=== PATIENT | male | born 1935 | race Caucasian/White ===

== ENCOUNTER → 2022-12-18 10:51 | Outpatient (BNVA) | payer MEDICARE, SELFPAY | PROVIDERS: Family Provider Family Medicine; PCP Family Medicine; Referring Provider Family Medicine; Visit Provider Dermatology | DX: L57.8 Other skin changes due to chronic exposure to nonionizing radiation (principal); L82.1 Other seborrheic keratosis; D48.5 Neoplasm of uncertain behavior of skin; L30.9 Dermatitis, unspecified | CPT/HCPCS: 11103; 11104; 11105; 99203 ==

== ENCOUNTER → 2022-12-29 09:55 | Outpatient (BNVA) | payer MEDICARE, SELFPAY | PROVIDERS: Family Provider Family Medicine; PCP Family Medicine; Visit Provider Dermatology | DX: L27.0 Generalized skin eruption due to drugs and medicaments taken internally (principal); C44.722 Squamous cell carcinoma of skin of right lower limb, including hip; Z48.02 Encounter for removal of sutures | CPT/HCPCS: 99213 ==

== ENCOUNTER → 2023-01-14 10:12 | Outpatient (BNVA) | payer MEDICARE, SELFPAY | PROVIDERS: Family Provider Family Medicine; PCP Family Medicine; Visit Provider Dermatology | DX: C44.722 Squamous cell carcinoma of skin of right lower limb, including hip (principal) | CPT/HCPCS: 17262 ==

== ENCOUNTER → 2023-08-20 14:41 | Outpatient (BNVA) | payer MEDICARE, SELFPAY | PROVIDERS: Family Provider Family Medicine; PCP Family Medicine; Visit Provider Family Medicine | DX: Z13.6 Encounter for screening for cardiovascular disorders (principal); I48.91 Unspecified atrial fibrillation; Z00.00 Encounter for general adult medical examination without abnormal findings; R06.2 Wheezing; L98.9 Disorder of the skin and subcutaneous tissue, unspecified | CPT/HCPCS: 80053; 80061 ==

== ENCOUNTER 2024-05-01 01:14 | Emergency (ER) | payer MEDICARE, SELFPAY ==
--- NOTE | 2024-05-01 01:19 | ECG_ITS ---
[facility] [employer] Test Date: 2024-05-01 Pat Name: Carroll Vizcaino Department: Room: Gender: Male Jewel Hole Cornerer: : 1935 Requested By: Joe Celaya Order Number: [id number] Luke MD: Jomar Ward M.D. Measurements Intervals [place] Rate: 59 P: 0 MT: 0 QRS: -61 QRSD: 114 T: 70 QT: 404 QTc: 403 Interpretive Statements ATRIAL FIBRILLATION WITH SLOW VENTRICULAR RESPONSE POSSIBLE ANTERIOR MYOCARDIAL INFARCTION , PROBABLY OLD [30 ms Q WAVE IN V3/V4, OR R < 0.2 mV IN V4] INFERIOR MYOCARDIAL INFARCTION , PROBABLY OLD [40+ ms Q WAVE AND/OR ST/T ABNORMALITY IN II/aVF] No previous ECG available for comparison Electronically Signed On 05-02-2024 20:16:24 FLIGHT TEST SUPERVISOR by Jomar Ward M.D. [email or web address]
[2024-05-01 01:24] VITALS: BP 157/79; PULSE 54; RESP 20; TEMP 36.6; O2SAT 92; BMI 34.4
--- NOTE | 2024-05-01 01:38 | XRR_ITS ---
PROCEDURE INFORMATION: Exam: XR Chest Exam date and time: 05/01/2024 1:41 AM Age: 88 years old Clinical indication: Patient HX: C/O palpitations. History of afib. ; Additional info: Palpitation TECHNIQUE: Imaging protocol: Radiologic exam of the chest. Views: 1 view. COMPARISON: CT abdomen pelvis wo/w [id number] 02/10/2018 1:28 AM FINDINGS: Lungs: There are prominent perihilar bronchi suggesting central bronchiectasis. There are increased interstitial opacities and some strandy opacity seen in the lower matt thoraces bilaterally, findings likely represents atelectasis. Pleural spaces: There may be tiny bilateral pleural effusions as well. Heart/Mediastinum: Unremarkable. No cardiomegaly. Bones/joints: Unremarkable. XR/XR chest 1V portable [id number] IMPRESSION: 1. Bilateral bronchiectasis 2. Increased interstitial opacities and strandy opacities in the lower hemithoraces most probably represents atelectasis. 3. Probable tiny bilateral pleural effusions
[2024-05-01 01:53] LABS: Basophils % 0.5 %; Eosinophils # 0.2 10^3/uL (0.0-0.8); Hematocrit 40.3 % (37-53); Lymphocytes # 1.8 10^3/uL (0.8-4.8); Lymphocytes % 24.5 %; Mean Corpuscular Hemoglobin 32.4 pg (27-33); Mean Corpuscular Volume 98.1 fl (82-101); Mean Platelet Volume 9.4 fL (7.4-10.4); Monocytes # 0.9 10^3/uL (0.2-0.9); Monocytes % 11.6 %; Neutrophils # 4.47 10^3/uL (1.8-7.7); Neutrophils % 60.1 %; Nucleated Red Blood Cells % 0 %; Platelet Count 220 10^3/cmm (157-399); Red Blood Count 4.11 10^6/uL (3.85-5.65); Red Cell Distribution Width 12.9 % (12.1-15.1); White Blood Count 7.43 10^3/uL (3.29-11.43)
[2024-05-01 02:04] LABS: INR 1.45 (0.8-1.2)
[2024-05-01 02:05] LABS: Partial Thromboplastin Time 33.3 SECONDS (23.9-36.7)
--- NOTE | 2024-05-01 02:05 | ED_ITS ---
HPI - Arrhythmia/Palpitations 2 General: Chief Complaint: Arrhythmia/Palpitations Stated Complaint: Afib heart racing Time Seen by Provider: 05/01/24 01:37 History of Present Illness: 88-year-old male patient with a history of atrial fibrillation. He awoke around 1230 this morning from sleep with palpitations. He felt like his heart was pounding through his chest he says. It is resolved now. He has been short of breath he says though for at least 5 days or so. No significant cough. He has swelling in his legs, but the swelling is stable from prior, no increase in water weight he says. He did not really have chest pain or discomfort. He did not take any extra medication at home. Related Data Previous Rx's Medication Instructions Recorded tamsulosin 0.4 mg capsule 0.4 mg PO DAILY #90 caps 07/01/22 albuterol sulfate 90 mcg/actuation 2 puff inhalation Q6H PRN 08/20/23 aerosol inhaler shortness of breath or wheezing/sputum production #8.5 grams metoprolol succinate 50 mg 50 mg PO DAILY #1 tab 08/20/23 tablet,extended release 24 hr triamcinolone acetonide 0.1 % 1 applic topical BID dermatosis 08/20/23 topical ointment #80 grams warfarin 2 mg tablet 2 mg PO DAILY #1 tab 08/20/23 Allergies Allergy/AdvReac Type Severity Reaction Status Date / Time No Known Allergies Allergy Unverified 11/10/23 09:02 [facility] ED 2 PFSH: Social History Smoking and tobacco/nicotine status: never used tobacco/nicotine Physical Exam 2 Const: COMMON NORMALS: no acute distress GENERAL APPEARANCE: cooperative; not ill appearing and not frail appearing HENMT: COMMON NORMALS: normocephalic, atraumatic and Normal external nose present HEAD & SCALP: normocephalic and atraumatic FACE & SINUS: normal facial exam and face symmetric NOSE: Normal external nose present Eye: COMMON NORMALS: Equal, round and reactive pupils present and EOMs intact bilaterally PUPIL: Yes Equal, round and reactive pupils present Neck/C-Spine: GENERAL: Yes trachea midline Chest: CHEST: Yes Symmetrical chest wall rise Resp: COMMON NORMALS: normal respiratory effort, No retractions, No use of accessory muscles and clear to auscultation bilaterally AUSCULTATION: clear to auscultation bilaterally Cardio: RATE: bradycardic RHYTHM: abnormal rhythm irregularly irregular GI: COMMON NORMALS: Normal to inspection, nondistended, normoactive bowel sounds present Extremity: GENERAL: Yes edema Neuro: DAVID COMA SCALE: document GCS findings David coma scale eye opening: Spontaneous Dodson coma scale verbal response: Orientated David coma scale motor response: Obey commands David coma scale total score: 15 S ENSORY EXAM: Yes extremities (intact) Psych: COMMON NORMALS: speech normal SPEECH: Yes normal speech Skin: COMMON NORMALS: no rashes or lesions noted GENERAL SKIN EXAM: no rashes or lesions noted Course 2 Vital Signs: Vital signs: Vital Signs Temperature 98 F 05/01/24 01:24 Pulse Rate 54 L 05/01/24 01:24 Respiratory Rate 20 H 05/01/24 01:24 Blood Pressure 157/79 05/01/24 01:24 Pulse Oximetry 92 05/01/24 01:24 MDM - Arrhythmia/Palpitations Medical Decision Making 88-year-old male gentleman who awoke with palpitations. His heart rate is actually been quite slow here. Anywhere from 35-60. Atrial fibrillation. He is normotensive. His other vitals are good. His delta troponin at 2 hours is 1. He has some bronchiectasis and is chest x-ray. He is given a dose of Lasix here to begin to diurese, as his x-ray shows tiny bilateral pleural effusions, and his BNP is slightly elevated. Cardiology follow-up. PCP follow-up. Return for worsening symptoms. Lab Data 05/01/24 01:25 05/01/24 01:25 Radiology Impressions Chest X-Ray 05/01/24 01:38 IMPRESSION: 1. Bilateral bronchiectasis 2. Increased interstitial opacities and strandy opacities in the lower hemithoraces most probably represents atelectasis. 3. Probable tiny bilateral pleural effusions Laboratory Results WBC 7.43 10^3/uL (3.29-11.43) 05/01/24 01:25 RBC 4.11 10^6/uL (3.85-5.65) 05/01/24 01:25 Hgb 13.30 g/dL (11.27-16.99) 05/01/24 01:25 Hct 40.3 % (37-53) 05/01/24 01:25 MCV 98.1 fl (82-101) 05/01/24 01:25 MCH 32.4 pg (27-33) 05/01/24 01:25 MCHC 33.0 g/dL (30-55) 05/01/24 01:25 RDW 12.9 % (12.1-15.1) 05/01/24 01:25 Plt Count 220 10^3/cmm (157-399) 05/01/24 01:25 MPV 9.4 fL (7.4-10.4) 05/01/24 01:25 Neut % (Auto) 60.1 % 05/01/24 01:25 Lymph % (Auto) 24.5 % 05/01/24 01:25 Winkler % (Auto) 11.6 % 05/01/24 01:25 Eos % (Auto) 3.0 % 05/01/24 01:25 Baso % (Auto) 0.5 % 05/01/24 01:25 Neut # (Auto) 4.47 10^3/uL (1.8-7.7) 05/01/24 01:25 Lymph # (Auto) 1.8 10^3/uL (0.8-4.8) 05/01/24 01:25 Winkler # (Auto) 0.9 10^3/uL (0.2-0.9) 05/01/24 01:25 Eos # (Auto) 0.2 10^3/uL (0.0-0.8) 05/01/24 01:25 Baso # (Auto) 0.0 10^3/uL (0.0-0.1) 05/01/24 01:25 Nucleated RBC % (auto) 0 % 05/01/24 01:25 Nucleated RBCs # 0.0 /100WBC 05/01/24 01:25 PT 18.10 SECONDS (12.1-14.9) H 05/01/24 01:25 INR 1.45 (0.8-1.2) H 05/01/24 01:25 APTT 33.3 SECONDS (23.9-36.7) 05/01/24 01:25 Sodium 138 mmol/L (136-145) 05/01/24 01:25 Potassium 4.2 mmol/L (3.5-5.1) 05/01/24 01:25 Chloride 102 mmol/L (98-107) 05/01/24 01:25 Carbon Dioxide 25 mmol/L (22-29) 05/01/24 01:25 Anion Gap 15.2 (5-19) 05/01/24 01:25 BUN 13 mg/dL (8-23) 05/01/24 01:25 Creatinine 0.8 mg/dL (0.7-1.2) 05/01/24 01:25 GFR Calculation Not Reportable 05/01/24 01:25 Glucose 116 mg/dL (65-115) H 05/01/24 01:25 Calculated Osmolality 287 mOsm/kg (285-295) 05/01/24 01:25 Calcium 9.3 mg/dL (8.5-10.5) 05/01/24 01:25 Magnesium 2.0 mg/dL (1.7-2.3) 05/01/24 01:25 Total Bilirubin 0.5 mg/dL (0.15-1.2) 05/01/24 01:25 AST 17 U/L (0-40) 05/01/24 01:25 ALT 12 U/L (0-41) 05/01/24 01:25 Alkaline Phosphatase 41 U/L (40-130) 05/01/24 01:25 Troponin T Baseline 29 ng/L (0-15) H 05/01/24 01:25 Troponin T 120 Minute 30.14 ng/L (0-15) H 05/01/24 03:24 Delta Troponin T 1.14 ABS# (0-10) 05/01/24 03:24 NT-Pro-B Natriuret Pep 2122 pg/mL (0-450) H 05/01/24 01:25 Total Protein 6.5 g/dL (6.6-8.7) L 05/01/24 01:25 Albumin 4.1 g/dL (3.5-5.2) 05/01/24 01:25 Globulin 2.4 g/dL (1.3-4.6) 05/01/24 01:25 TSH 6.96 uIU/mL (0.27-4.20) H 05/01/24 01:25 All radiology interpretation(s) finalized by discharge Discharge Plan Discharge Patient Disposition: Home Clinical Impression: Palpitations, Atrial fibrillation with slow ventricular response Condition: Stable Prescriptions: No Action triamcinolone acetonide 0.1 % ointment 1 applic topical BID Qty: 80 3RF metoprolol succinate 50 mg tablet extended release 24 hr 50 mg PO DAILY Qty: 1 0RF warfarin 2 mg tablet 2 mg PO DAILY Qty: 1 0RF Rx Instructions: ? albuterol sulfate 90 mcg/actuation HFA aerosol inhaler 2 puff inhalation Q6H PRN (Reason: shortness of breath or wheezing/sputum production) Qty: 8.5 1RF tamsulosin 0.4 mg capsule 0.4 mg PO DAILY Qty: 90 3RF Discharge Orders: Discharge ED (Routine); Ordered 05/01/24 Ordered By: Joe Noble Referrals: Palak Mckeon NP [Primary Care Provider] - Saul Paige MD [Physician] - 4-7 days Patient Instructions: A-fib (Atrial Fibrillation) (ED), Heart Palpitations (ED), Opioid Safety, Pain Management Activity Restrictions/Additional Instructions: Call your heart doctor Thursday morning to let them know you were seen here. Let them know your rate was found to be quite slow, and you may need medication adjustment versus other treatments. Return for chest discomfort or shortness of breath despite treatment, worsening palpitations, other concerning symptoms. Coding Level of Care Code ED Preschool Teacher'S Assistant for Jona Betancur
[2024-05-01 02:18] LABS: Alanine Aminotransferase 12 U/L (0-41); Albumin Level 4.1 g/dL (3.5-5.2); Alkaline Phosphatase 41 U/L (40-130); Aspartate Amino Transferase 17 U/L (0-40); Blood Urea Nitrogen 13 mg/dL (8-23); Calcium 9.3 mg/dL (8.5-10.5); Carbon Dioxide 25 mmol/L (22-29); Chloride 102 mmol/L (98-107); Creatinine Clr Calc Pharmacy 74.6025; Globulin 2.4 g/dL (1.3-4.6); Glucose 116 mg/dL (65-115); NT Pro B Type Natriuretic Pept 2122 pg/mL (0-450); Osmolality Calculated 287 mOsm/kg (285-295); Sodium 138 mmol/L (136-145); Total Bilirubin 0.5 mg/dL (0.15-1.2); Total Protein 6.5 g/dL (6.6-8.7)
[2024-05-01 02:19] LABS: Anion Gap 15.2 (5-19); Potassium 4.2 mmol/L (3.5-5.1)
[2024-05-01 02:20] LABS: Thyroid Stimulating Hormone 6.96 uIU/mL (0.27-4.20)
[2024-05-01 02:33] LABS: Troponin(5th) Baseline 29 ng/L (0-15)
[2024-05-01] MEDS: FUROsemide 10 mg/mL SDV 10mL 60 MG IVP (03:43)
[2024-05-01 04:16] LABS: Troponin 5 2HR 30.14 ng/L (0-15); Troponin 5 2HR Delta 1.14 ABS# (0-10)
[2024-05-01 04:38] VITALS: BP 136/65; PULSE 57; O2SAT 97
== END 2024-05-01 04:39 | disposition home or self-care (01) ==
PROVIDERS: Emergency Provider Emergency Medicine; PCP Nurse Practitioner Family
DX: R00.2 Palpitations (principal); I48.91 Unspecified atrial fibrillation; Z79.01 Long term (current) use of anticoagulants
CPT/HCPCS: 71045; 80053; 83735; 83880; 84443; 84484; 85025; 85610; 85730; 93005; 96374; 99285; J1940

== ENCOUNTER 2025-02-02 16:31 | Emergency (ER) | payer MEDICARE, SELFPAY ==
[2025-02-02 16:45] VITALS: BP 145/72; PULSE 74; RESP 16; TEMP 36.8; O2SAT 95
--- OUTSIDE RECORDS SUMMARY | 2025-02-02 16:54 | XMS_ITS | Encounter Summary ---
Author Organization [facility] Address [address] [place] [address] Care Team Providers Care Granulator Tender Name Role Phone Unavailable Primary Care Provider Unavailabl e Encounter Details Date Type Department Care Team (Latest Contact Info) Description 10/08/2004 Outpatient Historical [facility] [address] [place] [address] Carroll Vides MD [address] [place] [address] FEVER (Primary Dx) Social History Tobacco Use Types Packs/Day Years Used Date Smoking Tobacco: Never Assessed Sex and Gender Information Value Date Recorded Sex Assigned at Not on file Legal Sex Male 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
--- OUTSIDE RECORDS SUMMARY | 2025-02-02 16:54 | XMS_ITS | Encounter Summary ---
Author Organization [facility] Address [address] [place] [address] Care Team Providers Care Polymer Materials Consultant Name Role Phone Unavailable Primary Care Provider Unavailabl e Encounter Details Date Type Department Care Team (Latest Contact Info) Description 01/22/2005 Outpatient Historical [facility] [address] [place] [address] Carroll Vides MD [address] [place] [address] ALLERGY, UNSPECIFIED (Primary Dx) Social History Tobacco Use Types Packs/Day Years Used Date Smoking Tobacco: Never Assessed Sex and Gender Information Value Date Recorded Sex Assigned at Not on file 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
--- OUTSIDE RECORDS SUMMARY | 2025-02-02 16:54 | XMS_ITS | Encounter Summary ---
Author Organization [facility] Address [address] [place] [address] Care Team Providers Care Certified Caregiver Name Role Phone Unavailable Primary Care Provider Unavailabl e Encounter Details Date Type Department Care Team (Latest Contact Info) Description 10/22/2005 Outpatient Historical [facility] [address] [place] [address] Alexis Ramos, DIGITAL MEDIA STRATEGIST [address], [place] [id number] Allergic Rhinitis, Cause Unspecified (Primary Dx) Social History Tobacco Use Types Packs/Day Years Used Date Smoking Tobacco: Never Assessed Sex and Gender Information Value Date Recorded Sex Assigned at Not on file Legal Sex Male 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
--- OUTSIDE RECORDS SUMMARY | 2025-02-02 16:54 | XMS_ITS | Encounter Summary ---
Author Organization [facility] Address [address] [place] [address] Care Team Providers Care Needle Process Felt Goods Supervisor Name Role Phone Unavailable Primary Care Provider Unavailabl e Encounter Details Date Type Department Care Team (Latest Contact Info) Description 06/13/2005 Outpatient Historical [facility] [address] [place] [address] Alexis Ramos, CARGO TRIMMER [address] [place] [address] IMPETIGO (Primary Dx); ALLERGY, UNSPECIFIED Social History Tobacco Use Types Packs/Day Years Used Date Smoking Tobacco: Never Assessed Sex and Gender Information Value Date Recorded Sex Assigned at Not on file 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
--- OUTSIDE RECORDS SUMMARY | 2025-02-02 16:54 | XMS_ITS | Encounter Summary ---
Author Organization [facility] Address [address] [place] [address] Care Team Providers Care Messaging Architect Name Role Phone Unavailable Primary Care Provider Unavailabl e Encounter Details Date Type Department Care Team (Latest Contact Info) Description 04/15/2006 Outpatient Historical [facility] [address] [place] [phone] Miguel Erwin MD NO ADDRESS ON FILE Contact Dermatitis and Other Eczema, due to Unspecified Cause (Primary Dx) Social History Tobacco Use Types Packs/Day Years Used Date Smoking Tobacco: Never Assessed Sex and Gender Information Value Date Recorded Sex Assigned at Not on file Legal Sex Male 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
--- OUTSIDE RECORDS SUMMARY | 2025-02-02 16:54 | XMS_ITS | Encounter Summary ---
Author Organization [facility] Address [address] [place] [address] Care Team Providers Care Deputy Manager Name Role Phone Unavailable Primary Care Provider Unavailabl e Encounter Details Date Type Department Care Team (Latest Contact Info) Description 07/16/2004 Outpatient Historical [facility] [address] [place] [address] Carroll Vides MD [address] [place] [address] ASTHMA UNSPECIFIED (Primary Dx) Social History Tobacco Use Types Packs/Day Years Used Date Smoking Tobacco: Never Assessed Sex and Gender Information Value Date Recorded Sex Assigned at Not on file Legal Sex Male 5:[address]MINISTRATOR Gender Identity Not on file Sexual Orientation Not on file documented as of this encounter Plan of Treatment Not on file documented as of this encounter Visit Diagnoses Diagnosis Unspecified asthma(493.90)- Primary Unspecified asthma documented in this encounter
--- OUTSIDE RECORDS SUMMARY | 2025-02-02 16:54 | XMS_ITS | Encounter Summary ---
Author Organization [facility] Address [address] [place] [address] Care Team Providers Care Permit Coordinator Name Role Phone Unavailable Primary Care Provider Unavailabl e Encounter Details Date Type Department Care Team (Latest Contact Info) Description 04/08/2006 Outpatient Historical [facility] Dermatology- [facility] [place] [address] [place] [phone] Miguel Erwin MD NO ADDRESS ON FILE Rash and Other Nonspecific Skin Eruption (Primary Dx); Lichenification Social History Tobacco Use Types Packs/Day Years Used Date Smoking Tobacco: Never Assessed Sex and Gender Information Value Date Recorded Sex Assigned at Not on file 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
--- OUTSIDE RECORDS SUMMARY | 2025-02-02 16:54 | XMS_ITS | Encounter Summary ---
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
--- OUTSIDE RECORDS SUMMARY | 2025-02-02 16:54 | XMS_ITS | Encounter Summary ---
Author Organization [facility] Address [address] [place] [address] Care Team Providers Care Medical Technologist Chief Name Role Phone Unavailable Primary Care Provider Unavailabl e Encounter Details Date Type Department Care Team (Latest Contact Info) Description 08/01/2005 Outpatient Historical [facility] Dermatology- [facility] [address] [place] [address] Miguel Erwin MD NO ADDRESS ON FILE Rash and Other Nonspecific Skin Eruption (Primary Dx); Allergy, Unspecified not Elsewhere Classified Social History Tobacco Use Types Packs/Day Years Used Date Smoking Tobacco: Never Assessed Sex and Gender Information Value Date Recorded Sex Assigned at Not on file 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
--- OUTSIDE RECORDS SUMMARY | 2025-02-02 16:54 | XMS_ITS | Encounter Summary ---
Author Organization [facility] Address [address] [place] [address] Care Team Providers Care Hand Molder And Caster Name Role Phone Unavailable Primary Care Provider Unavailabl e Encounter Details Date Type Department Care Team (Latest Contact Info) Description 08/08/2005 Outpatient Historical [facility] Dermatology- [facility] [place] [address] [place] [address] Miguel Erwin MD NO ADDRESS ON FILE Unspecified Local Infection of Skin and Subcutaneous Tissue (Primary Dx) Social History Tobacco Use Types Packs/Day Years Used Date Smoking Tobacco: Never Assessed Sex and Gender Information Value Date Recorded Sex Assigned at Not on file Legal Sex Male 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
--- OUTSIDE RECORDS SUMMARY | 2025-02-02 16:54 | XMS_ITS | Encounter Summary ---
Author Organization [facility] Address [address] [place] [address] Care Team Providers Care Database Development Project Manager Name Role Phone Unavailable Primary Care Provider Unavailabl e Encounter Details Date Type Department Care Team (Latest Contact Info) Description 02/28/2005 Outpatient Historical [facility] [address] [place] [address] Carroll Vides MD [address] [place] [address] DIZZINESS AND GIDDINESS (Primary Dx) Social History Tobacco Use Types Packs/Day Years Used Date Smoking Tobacco: Never Assessed Sex and Gender Information Value Date Recorded Sex Assigned at Not on file 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
--- OUTSIDE RECORDS SUMMARY | 2025-02-02 16:54 | XMS_ITS | Clinical Summary ---
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
--- OUTSIDE RECORDS SUMMARY | 2025-02-02 16:54 | XMS_ITS | Encounter Summary ---
Author Organization [facility] [facility] Address [address] [place] [address] Care Team Providers Care Access Coordinator Name Role Phone Unavailable Primary Care Provider Unavailabl e Encounter Details Date Type Department Care Team (Latest Contact Info) Description 04/15/2006 Outpatient Historical [facility] [address] [place] [place] [phone] Miguel Erwin MD NO ADDRESS ON FILE Encounters for Unspecified Administrative Purpose (Primary Dx) Social History Tobacco Use Types Packs/Day Years Used Date Smoking Tobacco: Never Assessed Sex and Gender Information Value Date Recorded Sex Assigned at Not on file Legal Sex Male 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
--- NOTE | 2025-02-02 16:55 | ECG_ITS ---
[employer] Test Date: 2025-02-02 Pat Name: Carroll Vizcaino Department: Room: Gender: Male [employer] Assistant: : 1935 Requested By: Paige Brewer Order Number: [id number] Luke MD: CHAY GLOVER Measurements Intervals [place] Rate: 53 P: -65 LA: 105 QRS: -67 QRSD: 105 T: 75 QT: 411 QTc: 386 Interpretive Statements JUNCTIONAL BRADYCARDIA LEFT AXIS DEVIATION [QRS AXIS < -30] ANTERIOR MYOCARDIAL INFARCTION , PROBABLY OLD [40+ ms Q WAVE AND/OR ST/T ABNORMALITY IN V3/V4] ST DEPRESSION, CONSIDER SUBENDOCARDIAL INJURY [0.1+ mV ST DEPRESSION] Compared to ECG 05/01/2024 01:19:37 Left-axis deviation now present ST (T wave) deviation now present Atrial fibrillation no longer present Myocardial infarct finding still present Electronically Signed On 02-04-2025 21:36:12 CDT by CHAY GLOVER [id number]
--- NOTE | 2025-02-02 17:00 | XR_ITS ---
WS: [id number] Exam: XR chest 1V portable [id number] Date/Time of Exam: 02/02/2025 5:00 PM Reason For Exam: Shortness of breath Comparison 05/01/2024. The lungs are fully expanded and clear. Normal cardiomediastinal silhouette for technique. Bony structures are intact. Moderate DJD of the RIGHT shoulder. XR/XR chest 1V portable [id number] IMPRESSION: 1. No acute cardiopulmonary finding.
[2025-02-02 17:41] LABS: Hematocrit 41.6 % (37-53); Hemoglobin 13.70 g/dL (11.27-16.99); Mean Corpuscular HGB Conc 32.9 g/dL (30-55); Mean Corpuscular Hemoglobin 32.2 pg (27-33); Mean Corpuscular Volume 97.7 fl (82-101); Nucleated Red Blood Cells % 0 %; Platelet Count 249 10^3/cmm (157-399); Red Blood Count 4.26 10^6/uL (3.85-5.65); White Blood Count 7.04 10^3/uL (3.29-11.43)
[2025-02-02 17:58] LABS: Lactic Sepsis W/Reflex 1.1 mmol/L (0.5-2.2)
[2025-02-02 17:59] LABS: Troponin(5th) Baseline 32 ng/L (0-15)
[2025-02-02 18:12] LABS: Alanine Aminotransferase 12 U/L (0-41); Albumin Level 4.2 g/dL (3.5-5.2); Alkaline Phosphatase 45 U/L (40-130); Anion Gap 14.4 (5-19); Aspartate Amino Transferase 17 U/L (0-40); Blood Urea Nitrogen 16 mg/dL (8-23); Calcium 9.3 mg/dL (8.5-10.5); Carbon Dioxide 28 mmol/L (22-29); Chloride 101 mmol/L (98-107); Globulin 2.4 g/dL (1.3-4.6); Glucose 113 mg/dL (65-115); NT Pro B Type Natriuretic Pept 1839 pg/mL (0-450); Osmolality Calculated 290 mOsm/kg (285-295); Potassium 4.4 mmol/L (3.5-5.1); Sodium 139 mmol/L (136-145); Total Protein 6.6 g/dL (6.6-8.7)
[2025-02-02 19:14] LABS: Troponin 5 2HR 29.69 ng/L (0-15)
[2025-02-02 19:15] LABS: Troponin 5 2HR Delta -2.31 ABS# (0-10)
[2025-02-02 19:41] LABS: Glucose Urine UA Negative (Normal); Nitrate Urine Negative (Negative); Specific Gravity, Urine 1.020 (1.005-1.030)
[2025-02-02 19:43] LABS: Add Urine Microscopic? YES
--- NOTE | 2025-02-02 19:48 | W.ED.SOB ---
HPI - SOB/Dyspnea General: Chief Complaint: Shortness of Breath/Dyspnea Stated Complaint: SOB Time Seen by Provider: 02/02/25 19:11 History of Present Illness: HPI Narrative: Shortness of breath, worse in the morning, x 2 months. No cough, no sputum, no fever. No chest discomfort. Patient is frustrated, and came to the ED. He has not seen his primary care physician. He is not having chest pain. He does not have any fevers. He has not had any recent cold or illness. He did not have activity at the increasing of his shortness of breath. He has not discussed this at all with his primary care physician. There is no increasing in nature. Associated symptoms: Deny abdominal pain, chest pain, fever(s), nausea, palpitations or vomiting Related Data Previous Rx's ?Medication ?Instructions ?Recorded tamsulosin 0.4 mg capsule 0.4 mg PO DAILY #90 caps 07/01/22 albuterol sulfate 90 mcg/actuation 2 puff inhalation Q6H PRN 08/20/23 aerosol inhaler shortness of breath or wheezing/sputum production #8.5 grams metoprolol succinate 50 mg 50 mg PO DAILY #1 tab 08/20/23 tablet,extended release 24 hr triamcinolone acetonide 0.1 % 1 applic topical BID dermatosis 08/20/23 topical ointment #80 grams warfarin 2 mg tablet 2 mg PO DAILY #1 tab 08/20/23 Allergies Allergy/AdvReac Type Severity Reaction Status Date / Time No Known Allergies Allergy Unverified 11/10/23 09:02 Review of Systems General: Reports: 10 or more systems reviewed and unremarkable except in HPI and below Const: Denies: fever(s) or chills Eyes: Denies: change in vision or blurry vision ENMT: Denies: throat pain or dry mouth Card: Denies: chest pain or palpitations Resp: Reports: dyspnea; Denies: productive cough or non-productive cough GI: Denies: abdominal pain, nausea or vomiting : Denies: flank pain or difficulty urinating Musc: Denies: neck pain or back pain Skin/Breast: Denies: rash or pruritus Neuro: Denies: headache(s) or numbness in extremities Psych: Denies: anxiety or depression PFS ED PFSH: Social History Smoking and tobacco/nicotine status: never used tobacco/nicotine Physical Exam Const: COMMON NORMALS: no acute distress, average body habitus, patient oriented x3, no limitations, healthy appearing, alert and well nourished HENMT: COMMON NORMALS: normocephalic and atraumatic HEAD & SCALP: normocephalic and atraumatic Chest: COMMONS NORMALS: normal inspection of the chest and normal palpation of entire chest wall Resp: COMMON NORMALS: normal respiratory effort, No retractions and clear to auscultation bilaterally AUSCULTATION: clear to auscultation bilaterally Cardio: COMMON NORMALS: regular rate and regular rhythm RATE: regular rate RHYTHM: regular rhythm GI: COMMON NORMALS: Normal to inspection, nondistended, normoactive bowel sounds present, Soft to palpation, non-tender and No hepatosplenomegaly present PALPATION: Yes Soft to palpation and Yes No hepatosplenomegaly present : COMMON NORMALS: Yes no CVA tenderness BLADDER/KIDNEY EXAM: Yes no CVA tenderness Back/Pelvis: COMMON NORMALS: no CVA tenderness Extremity: COMMON NORMALS: normal to inspection, full ROM and capillary refill normal Neuro: COMMON NORMALS: patient oriented x3 SENSORIUM/ORIENTATION: Yes alert Psych: COMMON NORMALS: mental status grossly normal, Normal thought process present and cooperative THOUGHT PROCESS: Normal thought process present Skin: COMMON NORMALS: no rashes or lesions noted and no wounds GENERAL SKIN EXAM: no rashes or lesions noted Course Vital Signs: Vital signs: Vital Signs Temperature 98.3 F 02/02/25 16:45 Pulse Rate 74 02/02/25 16:45 Respiratory Rate 16 02/02/25 16:45 Blood Pressure 145/72 02/02/25 16:45 Pulse Oximetry 95 02/02/25 16:45 Oxygen Delivery Me thod Room Air 02/02/25 16:45 MDM - SOB/Dyspnea Medical Decision Making Patient is a 89-year-old gentleman that comes in with frustration of his shortness of breath that was worsening in the morning over the last 2 months. He has not discussed with his primary care physician. His workup is negative. Patient went to his doctor for an INR follow-up, however is not seen in September for shortness of breath. I have encouraged patient to get with his physician since the acute studies do not appear to be of concern, so he can have additional testing that would be appropriate for him, such as a PFT, anti-inflammatory/LABA, and potentially an echocardiogram. Patient states understanding. This was done in layman's terms. Patient will follow-up with his primary care physician for concern of his worsening shortness of breath. He will come back here for any acute issues. All of his questions answered to his satisfaction. Medical Records I reviewed the patient's medical records. Lab Data I reviewed the patient's lab results. 02/02/25 17:16 02/02/25 17:16 Labs/Radiology: Laboratory Results WBC 7.04 10^3/uL (3.29-11.43) 02/02/25 17:16 RBC 4.26 10^6/uL (3.85-5.65) 02/02/25 17:16 Hgb 13.70 g/dL (11.27-16.99) 02/02/25 17:16 Hct 41.6 % (37-53) 02/02/25 17:16 MCV 97.7 fl (82-101) 02/02/25 17:16 MCH 32.2 pg (27-33) 02/02/25 17:16 MCHC 32.9 g/dL (30-55) 02/02/25 17:16 RDW 13.2 % (12.1-15.1) 02/02/25 17:16 Plt Count 249 10^3/cmm (157-399) 02/02/25 17:16 MPV 9.3 fL (7.4-10.4) 02/02/25 17:16 Neut % (Auto) 67.3 % 02/02/25 17:16 Lymph % (Auto) 17.9 % 02/02/25 17:16 [place] % (Auto) 10.8 % 02/02/25 17:16 Eos % (Auto) 3.0 % 02/02/25 17:16 Baso % (Auto) 0.4 % 02/02/25 17:16 Neut # (Auto) 4.74 10^3/uL (1.8-7.7) 02/02/25 17:16 Lymph # (Auto) 1.3 10^3/uL (0.8-4.8) 02/02/25 17:16 [place] # (Auto) 0.8 10^3/uL (0.2-0.9) 02/02/25 17:16 Eos # (Auto) 0.2 10^3/uL (0.0-0.8) 02/02/25 17:16 Baso # (Auto) 0.0 10^3/uL (0.0-0.1) 02/02/25 17:16 Nucleated RBC % (auto) 0 % 02/02/25 17:16 Nucleated RBCs # 0.0 /100WBC 02/02/25 17:16 Sodium 139 mmol/L (136-145) 02/02/25 17:16 Potassium 4.4 mmol/L (3.5-5.1) 02/02/25 17:16 Chloride 101 mmol/L (98-107) 02/02/25 17:16 Carbon Dioxide 28 mmol/L (22-29) 02/02/25 17:16 Anion Gap 14.4 (5-19) 02/02/25 17:16 BUN 16 mg/dL (8-23) 02/02/25 17:16 Creatinine 0.8 mg/dL (0.7-1.2) 02/02/25 17:16 GFR Calculation Not Reportable 02/02/25 17:16 Glucose 113 mg/dL (65-115) 02/02/25 17:16 Calculated Osmolality 290 mOsm/kg (285-295) 02/02/25 17:16 Lactic Acid 1.1 mmol/L (0.5-2.2) 02/02/25 17:16 Calcium 9.3 mg/dL (8.5-10.5) 02/02/25 17:16 Total Bilirubin 0.9 mg/dL (0.15-1.2) 02/02/25 17:16 AST 17 U/L (0-40) 02/02/25 17:16 ALT 12 U/L (0-41) 02/02/25 17:16 Alkaline Phosphatase 45 U/L (40-130) 02/02/25 17:16 Troponin T Baseline 32 ng/L (0-15) H 02/02/25 17:16 Troponin T 120 Minute 29.69 ng/L (0-15) H 02/02/25 18:50 Delta Troponin T -2.31 ABS# (0-10) L 02/02/25 18:50 NT-Pro-B Natriuret Pep 1839 pg/mL (0-450) H 02/02/25 17:16 Total Protein 6.6 g/dL (6.6-8.7) 02/02/25 17:16 Albumin 4.2 g/dL (3.5-5.2) 02/02/25 17:16 Globulin 2.4 g/dL (1.3-4.6) 02/02/25 17:16 Urine Color Yellow (Yellow) 02/02/25 19:23 Urine Appearance Clear (CLEAR) 02/02/25 19:23 Urine pH 7.0 (5-7) 02/02/25 19:23 Ur Specific [place] 1.020 (1.005-1.030) 02/02/25 19:23 Urine Protein Negative (Negative) 02/02/25 19:23 Urine Glucose (UA) Negative (Normal) 02/02/25 19:23 Urine Ketones Negative (Negative) 02/02/25 19:23 Urine Blood Negative (Negative) 02/02/25 19:23 Urine Nitrate Negative (Negative) 02/02/25 19:23 Urine Bilirubin Negative (Negative) 02/02/25 19:23 Urine Urobilinogen 1.0 mg/dL (Negative) 02/02/25 19:23 Ur Leukocyte Esterase 1+ (Negative) A 02/02/25 19:23 Urine RBC 0-2 /hpf (0-2) 02/02/25 19:23 Urine WBC 21-50 /hpf (0-5) H 02/02/25 19:23 Ur Squamous Epith Cells 11-20 /hpf (0-5) H 02/02/25 19:23 Amorphous Sediment Not Reportable 02/02/25 19:23 Urine Bacteria None seen /hpf (NONE) 02/02/25 19:23 Hyaline Casts 0.81 /lpf 02/02/25 19:23 XR interpretation done by ED provider, pending radiology final review Discharge Plan Discharge Patient Disposition: Home Clinical Impression: Chronic shortness of breath Condition: Stable Prescriptions: No Action triamcinolone acetonide 0.1 % ointment 1 applic topical BID Qty: 80 3RF metoprolol succinate 50 mg tablet extended release 24 hr 50 mg PO DAILY Qty: 1 0RF warfarin 2 mg tablet 2 mg PO DAILY Qty: 1 0RF Rx Instructions: ? albuterol sulfate 90 mcg/actuation HFA aerosol inhaler 2 puff inhalation Q6H PRN (Reason: shortness of breath or wheezing/sputum production) Qty: 8.5 1RF tamsulosin 0.4 mg capsule 0.4 mg PO DAILY Qty: 90 3RF Discharge Orders: Discharge ED (Routine); Ordered 02/02/25 Ordered By: Bernice Reaves Referrals: Palak Mckeon NP [Primary Care Provider, Unknown] Discharge Diet: Low Salt Discharge Activity: Resume usual activity Patient Instructions: Shortness of Breath (ED), Patient Portal & Yu Instructions Activity Restrictions/Additional Instructions: - Please call tomorrow to make a follow-up from the ER with your doctor. This will be a hospital follow-up and they should get you in within the next week. -Shortness of breath can be related to having a large heart. Your x-ray is pending however your heart is larger than normal, however no change from previous if anything is improved. You may have to have both your heart and your lungs worked up to improve your lifestyle. This will be through your primary care physician. On this visit, you did not have any acute coronary syndrome, meaning nothing acute was going on with your heart -Caution on fluid overload. Be careful not to drink more than 1.5 L daily. - Follow a low-salt diet. - Follow-up with your doctor as directed above -Your urine does not appear to have an acute infection. There are multiple skin cells in your urine that you provided that can take taint the test. If you are having symptoms, have your doctor repeat this test. -Return to ED if you have worsening shortness of breath, chest pain. Print Language: Australian Coding Level of Care Code ED Workers' Compensation Claims Examiner for Jona Betancur
== END 2025-02-02 20:00 | disposition home or self-care (01) ==
PROVIDERS: Emergency Medicine; Emergency Provider Physician Assistant; PCP Nurse Practitioner Family
DX: R06.02 Shortness of breath (principal); Z79.01 Long term (current) use of anticoagulants
CPT/HCPCS: 36415; 71045; 80053; 81001; 83605; 83880; 84484; 85025; 87086; 93005; 99285

== ENCOUNTER 2025-02-15 15:37 | Outpatient (CLI) | payer MEDICARE, SELFPAY ==
--- NOTE | 2025-02-15 15:51 | CT_ITS ---
WS: [id number] CT chest wo con [id number] HISTORY: SOB TECHNIQUE: Axial imaging performed through the thorax. Coronal and sagittal reformats are submitted. All CT scans at [facility] use at least one of these dose optimization techniques: automated exposure control; mA and/or kV adjustment per patient size (includes targeted exams where dose is matched to clinical indication); or iterative reconstruction. CONTRAST: None DLP: 528.23 mGy.cm COMPARISON: X-ray 02/02/2025 Lungs and central airway: Mild motion artifact. Scattered opacification in the RIGHT middle lobe and mild bronchial wall thickening and bronchiectasis RIGHT lower lobe. RIGHT lower lobe bronchiectasis was present on the study of 02/10/2018. Pleura: Normal. No pleural effusion. Heart and pericardium: Moderate cardiomegaly. No pericardial effusion. Mediastinum and argenis: Small axillary lymph nodes. The largest lymph node on the LEFT is 13 mm. No mediastinal or hilar adenopathy. Vessels: Mild atherosclerosis aorta. Normal size pulmonary artery. Chest wall and lower neck: No soft tissue masses. Upper abdomen: Prior cholecystectomy. Suprarenal aortic calcifications. Mild perinephric stranding. Variable density upper pole of each kidney cannot be further characterized. Osseous structures: Advanced bridging osteophytes in the thoracic spine. CT/CT chest wo con [id number] IMPRESSION: 1. There are a few scattered opacifications in the RIGHT middle lobe which may be related to pneumonia or pneumonitis. Consider 3-month chest CT follow-up to exclude progression. 2. Chronic bronchial wall thickening and bronchiectasis RIGHT lower lobe since 2018. 3. No mediastinal or hilar adenopathy. 4. Mild atherosclerosis aorta. 5. Moderate cardiomegaly. 6. Prior cholecystectomy.
== END 2025-02-15 15:38 | disposition home or self-care (01) ==
PROVIDERS: PCP Nurse Practitioner Family; Visit Provider Nurse Practitioner Family
DX: R06.02 Shortness of breath (principal); J47.9 Bronchiectasis, uncomplicated; J98.09 Other diseases of bronchus, not elsewhere classified; I70.0 Atherosclerosis of aorta; I51.7 Cardiomegaly; Z90.49 Acquired absence of other specified parts of digestive tract
CPT/HCPCS: 71250

== ENCOUNTER 2025-03-17 07:42 | Outpatient (CLI) | payer MEDICARE, SELFPAY ==
[2025-03-17 08:07] VITALS: PULSE 73; RESP 18; O2SAT 95
== END 2025-03-17 07:43 | disposition home or self-care (01) ==
PROVIDERS: PCP Nurse Practitioner Family; Visit Provider Nurse Practitioner Family
DX: R06.02 Shortness of breath (principal); J98.8 Other specified respiratory disorders; R06.2 Wheezing
CPT/HCPCS: 94060; 94726; 94729; J7613